=== PATIENT | male | born 2000 | race Caucasian/White ===

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

== ENCOUNTER 2018-08-23 06:10 | Emergency (ER) | payer MEDICAID ==
[~2018-08-23] VITALS: Ht 188 cm; Wt 72.6 kg
[2018-08-23 06:13] VITALS: BP 126/76
--- NOTE | 2018-08-23 06:30 | NUR ---
Pt BIBSELF FROM HOME. Pt IS C/O LEFT FOOT PAIN S/P PLAYING SPORTS EARLIER TODAY. Pt ALSO MENTIONED HAVING MIGRAINES FOR THE PAST 2 DAYS AND LOST VISION IN RT EYE, BUT VISION CAME BACK ONCE HE WOKE UP FROM HIS SLEEP. Pt BEING SEEN BY MD AT BEDSIDE. Pt IS A/OX4, VERBAL, ABLE TO MAKE NEEDS KNOWN. NO S/S OF ACUTE DISTRESS OR SOB NOTED. WILL CONTINUE TO MONITOR Pt.
--- NOTE | 2018-08-23 06:48 | NUR ---
XR FOR FOOT BEING DONE AT BEDSIDE.
--- NOTE | 2018-08-23 07:20 | NUR ---
REPORT GIVEN TO [facility] FOR Pt's [facility]. Pt IS RESTING COMFORTABLY IN BED. NO S/S OF ACUTE DISTRESS OR SOB NOTED.
== END 2018-08-23 07:45 | disposition home or self-care (01) ==
LOC: ER 06:11
DX: S93.692A Other sprain of left foot, initial encounter (principal); X58.XXXA Exposure to other specified factors, initial encounter; Y93.59 Activity, other involving other sports and athletics played individually; Y92.89 Other specified places as the place of occurrence of the external cause; Y99.8 Other external cause status
CPT/HCPCS: 73630; 99283; A4606; Z7610

== ENCOUNTER 2019-02-11 04:19 | Emergency (ER) | payer MEDICAID ==
[~2019-02-11] VITALS: Ht 190.5 cm; Wt 70.3 kg
[2019-02-11 04:26] VITALS: BP 113/69
== END 2019-02-11 04:48 | disposition home or self-care (01) ==
LOC: ER 04:25
DX: S50.861A Insect bite (nonvenomous) of right forearm, initial encounter (principal); L03.113 Cellulitis of right upper limb; W57.XXXA Bitten or stung by nonvenomous insect and other nonvenomous arthropods, initial encounter; Y93.89 Activity, other specified; Y92.89 Other specified places as the place of occurrence of the external cause; Y99.8 Other external cause status

== ENCOUNTER 2019-06-12 02:51 | Emergency (ER) | payer MEDICAID ==
[~2019-06-12] VITALS: Ht 190.5 cm; Wt 74.4 kg
[2019-06-12 03:02] VITALS: BP 131/79
[2019-06-12] MEDS ORDERED: CLINDAMYCIN 900 MG/6 ML VIAL ONE (03:09)
[2019-06-12] MEDS ORDERED: CLINDAMYCIN 900 MG/6 ML VIAL IM ONE (03:30)
== END 2019-06-12 03:17 | disposition home or self-care (01) ==
LOC: ER 02:52
DX: L03.114 Cellulitis of left upper limb (principal)
CPT/HCPCS: 96372; 99283; J3490

== ENCOUNTER 2021-02-12 10:56 | Emergency (ER) | payer MEDICAID ==
[~2021-02-12] VITALS: Ht 188 cm; Wt 72.6 kg
[2021-02-12 11:04] VITALS: BP 124/74
== END 2021-02-12 11:47 | disposition home or self-care (01) ==
LOC: ER 10:58
DX: M25.531 Pain in right wrist (principal)

== ENCOUNTER 2021-09-06 15:24 | Emergency (ER) | payer MEDICAID ==
[~2021-09-06] VITALS: Ht 188 cm; Wt 72.6 kg
[2021-09-06 15:35] VITALS: BP 141/85
[2021-09-06] MEDS ORDERED: SIME80TA15 PO (15:53)
== END 2021-09-06 15:59 | disposition home or self-care (01) ==
LOC: ER 15:25
DX: R14.2 Eructation (principal); I11.9 Hypertensive heart disease without heart failure; E11.9 Type 2 diabetes mellitus without complications

== ENCOUNTER 2023-10-14 14:51 | Emergency (ER) | payer MEDICAID ==
[~2023-10-14] VITALS: Ht 177.8 cm; Wt 79.4 kg
[~2023-10-14 14:51] MED LIST: SIME80TA15 PO
[2023-10-14] MEDS ORDERED: IBUPROFEN 600 MG TABLET ONE (16:10)
[2023-10-14] MEDS ORDERED: CYCLOBENZAPRINE 10 MG TABLET ONE (16:11)
[2023-10-14] MEDS: CYCLOBENZAPRINE 10 MG TABLET PO ONE (16:11)
[2023-10-14] MEDS: IBUPROFEN 600 MG TABLET PO ONE (16:15)
[2023-10-14] MEDS ORDERED: IBUP-1957 PO (17:26)
[2023-10-14] MEDS ORDERED: CYCL10TA9 PO (17:26)
[2023-10-14 17:52] VITALS: BP 121/61; TEMP 98.2; O2SAT 100
== END 2023-10-14 17:53 | disposition home or self-care (01) ==
LOC: ER 14:55
DX: S70.02XA Contusion of left hip, initial encounter (principal); M25.552 Pain in left hip; R07.89 Other chest pain; M54.9 Dorsalgia, unspecified; V44.5XXA Car driver injured in collision with heavy transport vehicle or bus in traffic accident, initial encounter; Y93.89 Activity, other specified; Y92.89 Other specified places as the place of occurrence of the external cause; Y99.8 Other external cause status
CPT/HCPCS: 71045-TC; 73502

== ENCOUNTER 2025-03-22 12:28 | Emergency (ER) | payer MEDICAID ==
[~2025-03-22] VITALS: Ht 188 cm; Wt 72.6 kg
[~2025-03-22 12:28] MED LIST changes: +CYCL10TA9 PO; +IBUP-1957 PO
[2025-03-22 12:33] VITALS: BP 147/90; TEMP 98.4; O2SAT 97
[2025-03-22] MEDS ORDERED: IBUP-1490 PO (13:40)
== END 2025-03-22 14:11 | disposition home or self-care (01) ==
LOC: ER 12:38
DX: S09.8XXA Other specified injuries of head, initial encounter (principal); Y04.0XXA Assault by unarmed brawl or fight, initial encounter; Y93.89 Activity, other specified; Y92.89 Other specified places as the place of occurrence of the external cause; Y99.8 Other external cause status
CPT/HCPCS: 70450-TC; 70486-TC